=== PATIENT | male | born 1990 | race Two or more races ===

== ENCOUNTER → 2023-02-10 | Emergency (ER) | payer OTHER ==
[~2023-02-10] VITALS: Ht 182.9 cm; Wt 98.9 kg
[~2023-02-10] MED LIST: BUSPIRONE HCL7.5 MG PO; RESTORIL7.5 MG; ZESTRIL2.5 MG PO
== END | disposition home or self-care (01) ==
LOC: ER 22:03
DX: K08.89 Other specified disorders of teeth and supporting structures (principal)